=== PATIENT | female | born 1955 | race Caucasian/White ===

== ENCOUNTER 2020-06-12 13:47 | Emergency (ER) | payer OTHER, MEDICARE ==
[~2020-06-12] VITALS: Ht 170.2 cm; Wt 63.0 kg
[2020-06-12] MEDS ORDERED: TRAMADOL HYDROC50 M1 PO (15:01)
[2020-06-12 15:24] VITALS: BP 135/79
== END 2020-06-12 15:24 | disposition home or self-care (01) | DRG 563 ==
LOC: ED 13:47
PROC: 2W3DX1Z Immobilization of Left Lower Arm using Splint (ICD-10-PCS; principal; 2020-06-12)
DX: S52.502A Unspecified fracture of the lower end of left radius, initial encounter for closed fracture (principal); S52.612A Displaced fracture of left ulna styloid process, initial encounter for closed fracture; W01.0XXA Fall on same level from slipping, tripping and stumbling without subsequent striking against object, initial encounter; Y92.89 Other specified places as the place of occurrence of the external cause; Y99.0 Civilian activity done for income or pay